=== PATIENT | female | born 1970 | race Caucasian/White ===

== ENCOUNTER → 2024-05-18 09:26 | Outpatient (BNVA) | payer MEDICAID, SELFPAY | PROVIDERS: PCP Family Medicine; Visit Provider Family Medicine | DX: E11.9 Type 2 diabetes mellitus without complications (principal); Z79.4 Long term (current) use of insulin; M32.9 Systemic lupus erythematosus, unspecified; Z86.39 Personal history of other endocrine, nutritional and metabolic disease | CPT/HCPCS: 80053; 80061; 82043; 83036; 85025; 85651; 86038; 86140; 86200; 86431 ==

== ENCOUNTER → 2024-07-13 08:33 | Outpatient (BNVA) | payer MEDICAID, SELFPAY | PROVIDERS: PCP Family Medicine; Referring Provider Family Medicine; Visit Provider Internal Medicine Rheumatology | DX: M25.50 Pain in unspecified joint (principal); Z79.899 Other long term (current) drug therapy; Z71.85 Encounter for immunization safety counseling; M32.14 Glomerular disease in systemic lupus erythematosus; R76.8 Other specified abnormal immunological findings in serum | CPT/HCPCS: 36415; 83520; 86160; 86162; 86200; 86235; 86255; 86376; 86431; 86480; 86704; 86803; 87340; 99204 ==

== ENCOUNTER → 2024-07-23 09:18 | Outpatient (BNVA) | payer MEDICAID, SELFPAY | PROVIDERS: PCP Family Medicine; Visit Provider Family Medicine | DX: E87.5 Hyperkalemia (principal) | CPT/HCPCS: 80048 ==

== ENCOUNTER 2024-08-12 13:57 | Outpatient (CLI) | payer MEDICAID, SELFPAY ==
[2024-08-12 14:44] LABS: Basophils % 0.3 %; Eosinophils % 0.1 %; Hematocrit 53.5 % (36-47); Lymphocytes # 1.3 10^3/uL (0.8-4.8); Lymphocytes % 12.5 %; Mean Corpuscular HGB Conc 34.4 g/dL (30-55); Mean Corpuscular Hemoglobin 32.5 pg (27-33); Mean Corpuscular Volume 94.4 fl (85-98); Mean Platelet Volume 8.8 fL (7.4-10.4); Monocytes # 0.7 10^3/uL (0.2-0.9); Monocytes % 6.2 %; Neutrophils # 8.41 10^3/uL (1.8-7.7); Neutrophils % 80.5 %; Nucleated Red Blood Cells % 0 %; Platelet Count 471 10^3/cmm (157-399); Red Blood Count 5.67 10^6/uL (3.85-5.65); Red Cell Distribution Width 12.4 % (12.1-15.1); White Blood Count 10.44 10^3/uL (3.29-11.43)
[2024-08-12 14:55] LABS: Erythrocyte Sedimentation Rate 27 mm/hr (0-15)
[2024-08-12 15:18] LABS: Alanine Aminotransferase 24 U/L (0-33); Albumin Level 4.1 g/dL (3.5-5.2); Alkaline Phosphatase 141 U/L (35-105); Aspartate Amino Transferase 25 U/L (0-32); Bilirubin Direct 0.14 mg/dL (0.00-0.30); C Reactive Protein 7.7 mg/L (0.0-4.9); Free T4 Free Thyroxine 1.15 ng/dL (0.82-1.77); Glomerular Filtration Rate 65.5 mL/min (90-130); Total Bilirubin 0.3 mg/dL (0.15-1.2); Total Protein 8.1 g/dL (6.6-8.7)
== END 2024-08-12 13:58 | disposition home or self-care (01) ==
LOC: LAB 13:59
PROVIDERS: PCP Family Medicine; Visit Provider Internal Medicine Rheumatology
DX: M32.14 Glomerular disease in systemic lupus erythematosus (principal); Z79.899 Other long term (current) drug therapy
CPT/HCPCS: 36415; 80076; 82565; 84439; 84443; 85025; 85651; 86140

== ENCOUNTER 2024-09-06 10:05 | Oncology outpatient (recurring) (ONCR) | payer MEDICAID, SELFPAY | END 2024-09-23 23:59 | disposition home or self-care (01) | PROVIDERS: PCP Family Medicine; Visit Provider Internal Medicine Medical Oncology | DX: C20 Malignant neoplasm of rectum (principal); D75.1 Secondary polycythemia; F17.219 Nicotine dependence, cigarettes, with unspecified nicotine-induced disorders | CPT/HCPCS: 99205 ==

== ENCOUNTER 2024-10-05 20:37 | Observation (INO) | payer MEDICAID, SELFPAY ==
--- OUTSIDE RECORDS SUMMARY | 2024-07-26 10:00 | XMS_ITS | Continuity of Care Document ---
Author Organization [facility] Address [address] [place] [address] Phone Care Team Providers Care Pari Mutuel Ticket Cashier Name Role Phone Huy Rome Unavailable Unavailabl e Allergies, Adverse Reactions, Alerts Substance Reaction Status Criticality No Known Allergies Active No Inform ation Medications Medication Instructions Dosage Effective Dates (start - stop) Status Comments spironolactone 25 mg tablet take 1 tablet by oral route every day 25 MG - Active pt must make appt for further r/f duloxetine 30 mg capsule,delayed release take 1 capsule by oral route every day 30 MG - Active pt must make appt for further r/f metformin 1,000 mg tablet take 1 tablet by oral route 2 times every day with morning and evening meals 1000 MG - Active pt must make appt for further r/f rosuvastatin 40 mg tablet take 1 tablet by oral route every day 40 MG - Active pt must make appt for further r/f insulin glargine (U-100) 100 unit/mL (3 mL) subcutaneous pen inject 30 units by subcutaneous route every day - Active increased dose aspirin 81 mg tablet,delayed release take 1 tablet by oral route every day 81 MG - Active famotidine 20 mg tablet take 1 tablet by oral route every day 20 MG - Active fluticasone propionate 50 mcg/actuation nasal spray,suspension inhale 1 spray by intranasal route every day in each nostril 50 MCG - Active FreeStyle Surjit 3 Sensor device Use as directed, change every 14 days. - Active Blood Glucose Test strips CHECK TWICE DAILY by Intradermal route Not Available - Active ketotifen 0.025 % (0.035 %) eye drops instill 1 drop by ophthalmic route 2 times every day into affected eye(s) 1.00 drop - Active prednisone 1 mg tablet take 3 tablet by oral route every day 3 MG - Active triamcinolone acetonide 0.1 % topical cream apply by topical route two times daily for 2-4 weeks at a time - Active Vitamin D2 1,250 mcg (50,000 unit) capsule take 1 capsule by mouth every 7 days - Active bumetanide 1 mg tablet take 1 tablet by oral route twice daily - Active Benlysta 200 mg/mL subcutaneous auto-injector inject 1 milliliter by subcutaneous route every week on the same day of each week in the abdomen or thigh; rotate injectionsites 200 MG - Active Repatha SureClick 140 mg/mL subcutaneous pen injector inject 1 milliliter by subcutaneous route every 2 weeks in the abdomen, thigh, or outer area of upper arm (rotate sites) 140 MG - Active mycophenolate mofetil 500 mg tablet take 1 tablet by oral route 2 times every day 500 MG - Active Mounjaro 7.5 mg/0.5 mL subcutaneous pen injector inject 0.5mL into the skin every 7 days - Active Farxiga 10 mg tablet take 1 tablet by oral route every day in the morning 10 MG - Active Procedures Procedure Date Preventive checkup, est,40-64 yrs BODY MASS INDEX DOCD DIAST BP < 80 MM HG SYST BP LT 130 MM HG Cytopath C V Auto Fluid Redo (Pap) Office/outpatient visit,new, mod 2023 BODY MASS INDEX DOCD DIAST BP < 80 MM HG Mar-15-2024 SYST BP LT 130 MM HG HEMOGLOBIN A1C LEVEL > 9.0% Glycosylated hemoglobin assay Automated hemogram (CBC) HIV-1 AG W/HIV-1 & HIV-2 AB (EIA, SINA, COLE) Antibody, hepatitis C Metabolic panel, comprehensive Advance Directives Directive Yes / No Effective Date File Name No Information Encounters Encounter Description Practice Location Reason(s) For Visit Diagnoses Date Provider Providers Copied on Encounter [facility], [address], [place], [id number] tel: [phone] Formerly [facility] No Information 5 Olinda Loydin. [address], [place], [id number] . tel: [phone] [facility], [address] [place], [place], [id number] tel: [phone] [facility] No Information 4 Gardner Caytlin. [address], [place], [address] . tel: [phone] Preventive checkup, est,40-64 yrs [facility], [address] [place], [id number] tel: [phone] [facility] Nursing Comments (chief complaint) Annual exam (chief complaint) Encounter for gynecological examination (general) (routine) without abnormal findingsBody mass index [BMI] 37.0-37.9, adultPap smear for cervical cancer screening 4 Olinda Caytlin. [address], [place], [id number] . tel: [phone] [facility], [address] [place], [place], [address] tel:[phone] [facility] Type 2 diabetes mellitus without complication, without long-term current use of insulin 4 Olinda Caytlin. [address], [place], [address] . tel: [phone] Office/outpat ient visit,[facility], [address] [place], [id number] tel:[phone] [facility] Nursing Comments (chief complaint) new pt (chief complaint) Body mass index [BMI] 39.0-39.9, adultLupusType 2 diabetes mellitus without complication, without long-term current use of insulinScreening for HIV (human immunodeficiency virus)Encounter for hepatitis C screening test for low risk patientEncounter to establish careScreen for colon cancerAbnormal mammogram of left breast 4 Olinda Son. [address], [place], [address] . tel: [phone] Family History Family Member Type Diagnosis Age At Onset Mother Problem (finding) High cholesterol Mother Problem (finding) Diabetes mellitus Brother Problem (finding) Obesity Mother Problem (finding) Stroke Brother Problem (finding) Diabetes mellitus Payers Payer name Insurance type Covered alliance party ID Authoriza tion(s) [facility] CI [id number] Social History Type Description Quantity Date Captured Comments Sex Female Smoking Status No Information Sexual Orientation Straight or heterosexual Gender Identity Female Plan Of Treatment Date Type Action Status Goal Lifestyle education regardin g diet completed Goal Tobacco cessation counseling completed Goal Lifestyle education regardin g diet completed Referral Referred To: Referral JOSUE Shepard, [id number] [phone] Ordered: Referrals: Endocrinology, Diabetes and Metabolism. Referral Evaluate and treat Appointment date/timeframe: 05/12/2024 ordered Referral Referred To: Referral JOSUE Shepard, [id number] [phone] Ordered: Referrals: Rheumatology. Referral Evaluate and treat Appointment date/timeframe: 1 Month ordered Referral Ordered: Referrals: Diagnostic Radiology. Referral Diagnostic Mammogram, unilateral (CAD) + Ultrasound As Needed ordered Referral Referred To: Referral JOSUE Shepard, [id number] [phone] Ordered: Referrals: Gastroenterology. Referral . Evaluate and treat Appointment date/timeframe: 07/24/2023 ordered Referral Ordered: Referrals: Diagnostic Radiology. Referral MD.Diagnostic Mammogram, unilateral (CAD) + Ultrasound As Needed ordered Referral Ordered: Diagnostic Mammogram, unilateral (CAD) + Ultrasound As Needed L ordered Referral Ordered: Referrals: Diagnostic Radiology. Referral MD.Diagnostic Mammogram, unilateral (CAD) + Ultrasound As Needed ordered Referral Ordered: Referrals: Diagnostic Radiology. Referral MD.Diagnostic Mammogram, unilateral (CAD) + Ultrasound As Needed ordered History Of Present Illness Encounter Date Complaint History Of Prese nt Illness Nursing Comments Pharm: verified Travel: no Covid: rcv'd Fasting: no. Tobacco use: cigarettes 6 per day ETOH use: n/a Substance use: n/a Last PAP: 2020 # of current sexual partners: n/a Contraception: n/a ObGYN: unsure Pregnancies: 3, 2 live Abortions: 0 Miscarriages: 1 LMP: 2021 Breast complaints: lump on left breast. getting mammogram. Mammo (50+): 11/2022 DEXA (65+): n/a Colon (45+): 2018. ADAM HODGE Annual exam Patient's menses is absent. Details: LMP 3yrs ago. Negative for: breast discharge, breast lump(s) and breast pain. Positive for: breast self exam.Postmenopausal. Menopausal symptoms negative for: vaginal dryness. Pertinent negatives include abnormal vaginal bleeding, vaginal discharge and vaginal itching. Patient does not take calcium. Patient reports taking Vitamin D. Patient does not take multivitamins. The patient does not drink alcohol. Additional information: last pap 2020 but pt reports abnormal, no records avail for review. hx of abnormal mammo in [place], had spot on L breast/ advised repeat u/s in 6mon 04/2023, ordered mammo/u/s and referrals working on scheduling appt. pt does not feel mass in L breast. smokes tobacco/ not interested in quitting. 3/4 paternal aunts had BC. denies fam hx of hand surgeon or colon cancer. not sexually active in 10yrs.. Nursing Comments Pharmacy: [facility] Travel: no Fasting: no Covid: recieved Flu: recievedReason for Visit: [facility]. [place] Tobacco use: cigarettes, 1/2 pack per day ETOH use: n/a Substance use: n/a ObGYN: n/a Pregnancies: 2 Abortions: 0 Miscarriages: 0 LMP: 2020 Contraception: n/a # of current sexual partners: n/a Last pap: 2020 Last PCP/specialists: Diamond Ojeda, Adult Medicine at [facility] [phone]. Ophthalmology Dr Alexander White, Replaced By [facility] for [facility] care [phone]. ARLET Peterson, Rheum at [facility] [phone]. PMH: T2D, Lupus PSH: rectal surgery 2017, 2002, pyloric stenosis repair 1970 Occupation: disabled Mammo (50+): 10/2022 Colon (45+): 2018LJ, [place] new pt PCPHx of pcp in [place]. Moved to [place] x2mon d/t son. Denies recent hospitalizations.DM type 2Pt on Metformin 1000mg 2x/d, farixga 10mg/d, mounjaro 7.5mg/wk, lantus 20u/d. Denies low BS. last a1c over 7. Pt on Cymbalta to help with neuropathy, denies depression s/s. Pt states gabapentin does not help/ does not wish to continue. Lupusout meds x1 wk, tried to get r/f from previous prescriber but since she was out of state they would not r/f. Pt states on bumex/ spironolactone for hx of gaining fluid/ had 30L removed 3yrs ago per pt. Denies hx of heart failure. PMHHx of colon surgery colectomy 2017, csection, pyloric stenosis repair. Denies other surgical hx. Denies hx of CA/CVA/HTN/kidney problems/ liver problems/ thyroid problems/ seizures/tremors/ cancer.Fam HxCompleted/ on chart.Social HxSmokes 0.5ppd, not interested in quitting. Denies etoh use. Denies hx or current substance use. pap 2020, was abnormal per pt, will schedule for papLMP 3yrs agomammo last yr, spot L breast but repeat in 6mon due 04/2023, pt open to L breast u/s. colon 2018, recommend annually, pt open to referral Functional Status Date Functional Assessmen t No Information Instructions Date Instruction Additional Brynnr keely Encouraged pt to com plete SBE monthly, educate pt how to complete SBE. Encouraged pt to take vit d supplement and eat calcium rich diet to promote bone health. All questions/ concerns addressed. Related to Encounter for gynecological examination (general) (routine) without abnormal findings Giving encouragement to exercise Related to Body mass index [BMI] 37.0-37.9, adult Lifestyle education regarding di et Related to Body mass index [BMI] 37.0-37.9, adult Continue medicines d aily. Discussed will bridge medicines until get in with rheumatology. Risks, benefits and side effects of treatment were discussed with the patient. Related to Lupus Advised to see denti st twice yearly and encouraged yearly eye exam. Related to Encounter to establish care Continue medicines d aily. Advised pt to limit carbs/ sweets /sodas and increase exercise to help lower blood sugar. If you have chest pain, SOB, syncope, blurry vision, PUGA, swelling in lower legs, go to ER. Eat diet low in fats/salts (<2g/day). Encouraged pt to eat lean meats, increase vegetable intake and drink plenty of water 6-8, 8oz glasses of water/day. Encouraged aerobic exercise 30min/day 5 days a week. Related to Type 2 diabetes mellitus without complication, without long-term current use of insulin Giving encouragement to exercise Related to Body mass index [BMI] 39.0-39.9, adult Lifestyle education regarding di et Related to Body mass index [BMI] 39.0-39.9, adult Assessments Type Assessment Date No Information Patient Care Teams Name Effective Dates (start - stop) Status Members No Information
--- OUTSIDE RECORDS SUMMARY | 2024-07-26 10:00 | XMS_ITS | Continuity of Care Document ---
Author Organization [employer] [facility] [employer] [facility] Address [address] [place] [address] Phone Care Team Providers Care Basket Bottom Machine Operator Name Role Phone Huy Rome Unavailable Unavailabl [...] route every day - Active increased dose prednisone 1 mg tablet take 3 tablet by oral route every day 3 MG - Active triamcinolone acetonide 0.1 % topical cream apply by topical route two times daily for 2-4 weeks at a time - Active Vitamin D2 1,250 mcg (50,000 unit) capsule take 1 capsule by mouth every 7 days - Active ketotifen 0.025 % (0.035 %) eye drops instill 1 drop by ophthalmic route 2 times every day into affected eye(s) 1.00 drop - Active Blood Glucose Test strips CHECK TWICE DAILY by Intradermal route Not Available - Active FreeStyle Surjit 3 Sensor device Use as directed, change every 14 days. - Active fluticasone propionate 50 mcg/actuation nasal spray,suspension inhale 1 spray by intranasal route every day in each nostril 50 MCG - Active famotidine 20 mg tablet take 1 tablet by oral route every day 20 MG - Active aspirin 81 mg tablet,delayed release take 1 tablet by oral route every day 81 MG - Active Farxiga 10 mg tablet take 1 tablet by oral route every day in the morning 10 MG - Active Mounjaro 7.5 mg/0.5 mL subcutaneous pen injector inject 0.5mL into the skin every 7 days - Active mycophenolate mofetil 500 mg tablet take 1 tablet by oral route 2 times every day 500 MG - Active Repatha SureClick 140 mg/mL subcutaneous pen injector inject 1 milliliter by subcutaneous route every 2 weeks in the abdomen, thigh, or outer area of upper arm (rotate sites) 140 MG - Active Benlysta 200 mg/mL subcutaneous auto-injector inject 1 milliliter by subcutaneous route every week on the same day of each week in the abdomen or thigh; rotate injectionsites 200 MG - Active bumetanide 1 mg tablet take 1 tablet by oral route twice daily - Active Procedures Procedure Date Preventive checkup, [...] Diagnoses Date Provider Providers Copied on Encounter [facility], [address], [id number] tel: [phone] [facility] No Information 5 Olinda Loydin. [address] [place], [place], [id number] . tel: [phone] [facility], [address] [place], [place], [address] tel: [phone] [facility] No Information 4 [place] Caytlin. [address] [place], [place], [id number] . tel: [phone] Preventive checkup, est,40-64 yrs [facility], [address], [address] tel: [phone] [facility] Nursing Comments (chief complaint) Annual exam (chief complaint) Encounter for gynecological examination (general) (routine) without abnormal findingsBody mass index [BMI] 37.0-37.9, adultPap smear for cervical cancer screening 4 Olinda Caytlin. [address] [place], [place], [address] . tel: [phone] [facility], [address] [place], [place], [address] tel:[phone] [facility] Type 2 diabetes mellitus without complication, without long-term current use of insulin 4 Olinda Caytlin. [address] [place], [place], [address] . tel: [phone] Office/outpat ient visit,[facility], [address] [place], [id number] tel:[phone] [facility] Nursing Comments (chief complaint) new pt (chief complaint) Body mass index [BMI] 39.0-39.9, adultLupusType 2 diabetes mellitus without complication, without long-term current use of insulinScreening for HIV (human immunodeficiency virus)Encounter for hepatitis C screening test for low risk patientEncounter to establish careScreen for colon cancerAbnormal mammogram of left breast 4 Olinda Son. [address] [place], [place], [address] . tel: [phone] Family History Family Member Type Diagnosis Age At Onset Brother Problem (finding) Diabetes mellitus Mother Problem (finding) Stroke Brother Problem (finding) Obesity Mother Problem (finding) Diabetes mellitus Mother Problem (finding) High cholesterol Payers Payer name Insurance type Covered green party ID Authoriza tion(s) [facility] CI [id number] Social History Type Description Quantity Date Captured Comments Sex Female Smoking Status No Information Sexual Orientation Straight or heterosexual Gender Identity Female Plan Of Treatment Date Type Action Status Goal Lifestyle education regardin g diet completed Goal Tobacco cessation counseling completed Goal Lifestyle education regardin g diet completed Referral Referred To: Referral JOSUE Shepard, [id number] [phone] Ordered: Referrals: Endocrinology, Diabetes and Metabolism. Referral Evaluate and treat Appointment date/timeframe: 05/12/2024 ordered Referral Referred To: Referral JOSUE Shepard, [id number] [phone] Ordered: Referrals: Rheumatology. Referral Evaluate and treat Appointment date/timeframe: 1 Month ordered Referral Ordered: Referrals: Diagnostic Radiology. Referral Diagnostic Mammogram, unilateral (CAD) + Ultrasound As Needed ordered Referral Referred To: Referral JOSUE Shepard, [id number] [phone] Ordered: Referrals: Gastroenterology. Referral MD. Evaluate and treat Appointment date/timeframe: 07/24/2023 ordered [...] Date Complaint History Of Prese nt Illness Annual exam Patient's menses is absent. Details: [...] aunts had BC. denies fam hx of bracelet and brooch maker or colon cancer. not sexually active in 10yrs.. Nursing Comments Pharm: verified Travel: no Covid: rcv'd Fasting: no. Tobacco use: cigarettes 6 per day ETOH use: n/a Substance use: n/a Last PAP: 2020 # of current sexual partners: n/a Contraception: n/a ObGYN: unsure Pregnancies: 3, 2 live Abortions: 0 Miscarriages: 1 LMP: 2021 Breast complaints: lump on left breast. getting mammogram. Mammo (50+): 11/2022 DEXA (65+): n/a Colon (45+): 2019. ADAM HODGE new pt PCPHx of pcp in [place]. Moved to [place] x2mon d/t son. Denies recent hospitalizations.DM type [...] heart failure. PMHHx of colon surgery colectomy 2018, csection, pyloric stenosis repair. Denies other surgical hx. Denies hx of [place]/CVA/HTN/kidney problems/ liver problems/ thyroid problems/ seizures/tremors/ cancer.Fam HxCompleted/ on chart.Social HxSmokes 0.5ppd, not interested in quitting. Denies etoh use. Denies hx or current substance use. pap 2020, was abnormal per pt, will schedule for papLMP 3yrs agomammo last yr, spot L breast but repeat in 6mon due 04/2023, pt open to L breast u/s. colon 2017, recommend annually, pt open to referral Nursing Comments Pharmacy: verif ied Travel: no Fasting: no Covid: recieved Flu: recievedReason for Visit: Establish care. [place], [place] Tobacco use: cigarettes, 1/2 pack per day ETOH use: n/a Substance use: n/a ObGYN: n/a Pregnancies: 2 Abortions: 0 Miscarriages: 0 LMP: 2020 Contraception: n/a # of current sexual partners: n/a Last pap: 2020 Last PCP/specialists: Diamond Ojeda, Adult Medicine at [facility] [phone]. Op[address] Alexander White, [facility] for Vision care [phone]. ARLET Peterson, Rheum at [facility] [phone]. PMH: T2D, Lupus PSH: rectal surgery 2017, 2002, pyloric stenosis repair 1970 Occupation: disabled Mammo (50+): 10/2022 Colon (45+): 2017LJ, ADAM Functional Status Date Functional Assessmen t No Information Instructions Date Instruction Costa Swainstefanie riggs Encouraged pt to com plete SBE monthly, educate pt how to complete SBE. Encouraged pt to take vit d supplement and eat calcium rich diet to promote bone health. All questions/ concerns addressed. Related to Encounter for gynecological examination (general) (routine) without abnormal findings Lifestyle education regarding di et Related to Body mass index [BMI] 37.0-37.9, adult Giving encouragement to exercise Related to Body mass index [BMI] 37.0-37.9, adult Advised to see denti st twice yearly [...] complication, without long-term current use of insulin Continue medicines d aily. Discussed will bridge medicines until get in with rheumatology. Risks, benefits and side effects of treatment were discussed with the patient. Related to Lupus Lifestyle education regarding di et Related to Body mass index [BMI] 39.0-39.9, adult Giving encouragement to exercise Related to Body mass index [BMI] 39.0-39.9, adult Assessments Type Assessment Date No Information Patient Care Teams Name Effective Dates (start - stop) Status Members No Information
--- OUTSIDE RECORDS SUMMARY | 2024-07-26 10:00 | XMS_ITS | Continuity of Care Document ---
Author Organization [facility] [facility] Address [address] [place] [address] Phone Care Team Providers Care Analytic Manager Name Role Phone Huy Rome Unavailable Unavailabl [...] Diagnoses Date Provider Providers Copied on Encounter [facility], [address], [place], [id number] tel: [phone] [facility] No Information 5 Olinda Loydin. [address], [place], [id number] . tel: [phone] [facility], [address] [place], [place], [id number] tel: [phone] [facility] No Information 4 Beals Caytlin. [address], [place], [id number] . tel: [phone] Preventive checkup, est,40-[address] [facility], [address], [id number] tel: [phone] [facility] Nursing Comments (chief complaint) Annual exam (chief complaint) Encounter for gynecological examination (general) (routine) without abnormal findingsBody mass index [BMI] 37.0-37.9, adultPap smear for cervical cancer screening 4 Olinda Caytlin. [address], [place], [id number] . tel: [phone] [facility], [address] [place], [place], [address] tel:[phone] [facility] Type 2 diabetes mellitus without complication, without long-term current use of insulin 4 Olinda Caytlin. [address], [place], [address] . tel: [phone] Office/outpat ient visit,[facility], [address] [place], [id number] tel:[phone] [facility] Nursing Comments (chief complaint) new pt (chief complaint) Body mass index [BMI] 39.0-39.9, adultLupusType 2 diabetes mellitus without complication, without long-term current use of insulinScreening for HIV (human immunodeficiency virus)Encounter for hepatitis C screening test for low risk patientEncounter to establish careScreen for colon cancerAbnormal mammogram of left breast 4 Olinda Son. [address], [place], [id number] . tel: [phone] Family History Family Member Type Diagnosis Age At Onset Mother Problem (finding) High cholesterol Mother Problem (finding) Diabetes mellitus Brother Problem (finding) Obesity Mother Problem (finding) Stroke Brother Problem (finding) Diabetes mellitus Payers Payer name Insurance type Covered alliance party ID Authoriza tion(s) [facility] CI [id number] Social History Type Description Quantity Date Captured Comments Sex Female Smoking Status No Information Sexual Orientation Straight or heterosexual Gender Identity Female Plan Of Treatment Date Type Action Status Goal Lifestyle education regardin g diet completed Goal Tobacco cessation counseling completed Goal Lifestyle education regardin g diet completed Referral Referred To: Referral JOSUE Shepard, [id number] [phone] Ordered: Referrals: Endocrinology, Diabetes and Metabolism. Referral Evaluate and treat Appointment date/timeframe: 05/12/2024 ordered Referral Referred To: Referral JOSUE Shepard, [id number] [phone] Ordered: Referrals: Rheumatology. Referral Evaluate and treat Appointment date/timeframe: 1 Month ordered Referral Ordered: Referrals: Diagnostic Radiology. Referral Diagnostic Mammogram, unilateral (CAD) + Ultrasound As Needed ordered Referral Referred To: Referral JOSUE Shepard, [id number] [phone] Ordered: Referrals: Gastroenterology. Referral . Evaluate and [...] aunts had BC. denies fam hx of welding machine operator arc or colon cancer. not sexually active in 10yrs.. Nursing Comments Pharmacy: [facility] Travel: no Fasting: no Covid: recieved Flu: recievedReason [facility] [place] Tobacco use: cigarettes, 1/2 pack per day ETOH use: n/a Substance use: n/a ObGYN: n/a Pregnancies: 2 Abortions: 0 Miscarriages: 0 LMP: 2020 Contraception: n/a # of current sexual partners: n/a Last pap: 2020 Last PCP/specialists: Diamond Ojeda, Adult Medicine at [facility] [phone]. Ophthalmology Dr Alexander White, [facility] care [phone]. ARLET Peterson, Rheum at [facility] [phone]. PMH: T2D, Lupus PSH: rectal surgery 2017, 2002, pyloric stenosis repair 1970 Occupation: disabled Mammo (50+): 10/2022 Colon (45+): 2018[place], [place] new pt PCPHx of pcp in [place]. Moved to [place] x2mon d/t son. Denies recent hospitalizations.DM type [...] Denies other surgical hx. Denies hx of NH/CVA/HTN/kidney problems/ liver problems/ thyroid problems/ seizures/tremors/ cancer.Fam [...]
[2024-10-05 20:38] VITALS: BP 111/63; PULSE 92; RESP 18; TEMP 36.2; O2SAT 94; BMI 37.5
--- NOTE | 2024-10-05 20:44 | ECG_ITS ---
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 Measurements Intervals [place] Rate: 90 P: 70 DC: 163 QRS: 259 QRSD: 88 T: 44 QT: 301 QTc: 368 Interpretive Statements SINUS RHYTHM Poor R wave progression Possible mild right ventricular conduction delay No previous ECG available for comparison Electronically Signed On 10-05-2024 21:27:34 CDT by Royce Kim M.D. [email or web address]
--- NOTE | 2024-10-05 20:45 | XRR_ITS ---
PROCEDURE INFORMATION: Exam: XR Chest Exam date and time: 10/05/2024 8:46 PM Age: 53 years old Clinical indication: Other: Weakness TECHNIQUE: Imaging protocol: Radiologic exam of the chest. Views: 1 view. COMPARISON: No relevant prior studies available. FINDINGS: Lungs: Vague 3 cm opacity overlying the right lung apex. No consolidation. Pleural spaces: Unremarkable. No pleural effusion. No pneumothorax. Heart/Mediastinum: Unremarkable. No cardiomegaly. Bones/joints: Unremarkable. XR/XR chest 1V portable [id number] IMPRESSION: 1. Vague 3 cm opacity overlying the right lung apex, which may be artifactual due to overlapping mediastinal structures and 1st rib, though a lung mass is not excluded. Recommend follow-up CT chest for further evaluation. 2. No focal consolidation.
--- NOTE | 2024-10-05 20:45 | W.ED.WEAKNES ---
HPI - Weakness General: Chief complaint: Weakness Stated complaint: WEAKNESS Time Seen by Provider: 10/05/24 20:41 History of Present Illness: 53-year-old woman with a history of polyarthralgias, lupus, diabetes, hyperlipidemia and obesity who presents emergency room by ambulance with generalized weakness. Says it started about 5 PM. She think she is having a lupus flare. However she has never had 1 before. Says she is on 3 mg of prednisone daily. No fever. No altered mental status. No focal motor deficits. No chest pain. No cough. No abdominal pain. Related Data Home Medications ?Medication ?Instructions ?Recorded ?Confirmed aspirin 81 mg tablet,delayed 81 mg PO DAILY 05/18/24 09/06/24 release calcium 500 mg (as tab PO 05/18/24 09/06/24 carbonate)-vitamin D3 15 mcg (600 unit) tablet cholecalciferol (vitamin D3) 1,250 1,250 mcg PO .every 7 days 05/18/24 09/06/24 mcg (50,000 unit) capsule ketotifen fumarate 0.025 % (0.035 1 drp ophthalmic (eye) BID 05/18/24 09/06/24 %) eye drops (Allergy Eye (ketotifen)) methotrexate sodium 2.5 mg tablet mg PO 09/06/24 09/06/24 Previous Rx's ?Medication ?Instructions ?Recorded dapagliflozin propanediol 10 mg 10 mg PO DAILY #30 tabs 05/18/[address] [facility] Blood Glucose Monitor #1 ea 05/21/24 Blood glucose test strips #100 ea 05/21/24 Lancets to be used with glucose #100 ea 05/21/24 testing Pen [place] to be used with Lantus #100 ea 05/21/24 and Moannel folic acid 1 mg tablet 1 mg PO DAILY #30 tabs 07/13/24 bumetanide 1 mg tablet 1 mg PO BID #180 tabs 07/16/24 duloxetine 30 mg capsule,delayed 30 mg PO DAILY #90 caps 07/16/24 release metformin 1,000 mg tablet 1,000 mg PO BID #180 tabs 07/16/24 spironolactone 25 mg tablet 25 mg PO DAILY #90 tabs 07/16/24 rosuvastatin 40 mg tablet 40 mg PO DAILY #30 tabs 08/19/24 insulin glargine 100 unit/mL (3 38 unit (0.38 mL) SUBCUT QAM #15 mL 08/20/24 mL) subcutaneous pen (Lantus Solostar U-100 Insulin) semaglutide 2 mg/dose (8 mg/3 mL) 2 mg (0.75 mL) SUBCUT .weekly 09/13/24 subcutaneous pen injector (Ozempic) Diabetes #3 mL famotidine 20 mg tablet 20 mg PO DAILY #30 tabs 09/15/24 fluticasone propionate 50 2 spray intranasal DAILY #16 grams 09/15/24 mcg/actuation nasal spray,suspension prednisone 1 mg tablet 3 mg (3 x 1 mg) PO DAILY #90 tabs 09/15/24 evolocumab 140 mg/mL subcutaneous 140 mg SUBCUT .every 2 weeks #2 mL 09/27/24 pen injector (Repatha SureClick) Allergies Allergy/AdvReac Type Severity Reaction Status Date / Time No Known Allergies Allergy Verified 09/06/24 10:11 Review of Systems Narrative: Constitutional symptoms: Negative except as documented in HPI. Skin symptoms: Negative except as documented in HPI. Eye symptoms: Negative except as documented in HPI. ENMT symptoms: Negative except as documented in HPI. Respiratory symptoms: Negative except as documented in HPI. Cardiovascular symptoms: Negative except as documented in HPI. Gastrointestinal symptoms: Negative except as documented in HPI. Genitourinary symptoms: Negative except as documented in HPI. Musculoskeletal symptoms: Negative except as documented in HPI. Neurologic symptoms: Negative except as documented in HPI. Psychiatric symptoms: Negative except as documented in HPI. Endocrine symptoms: Negative except as documented in HPI. PFSH ED PFSH: Medical History (Updated 10/06/24 @ 01:20 by Cherry Reyes MD) History of colorectal cancer Last seen by oncology in 2020. Last flex sig was in 2018. Positive antinuclear antibody Immunization counseling High risk medication use Polyarthralgia Allergic rhinitis GERD (gastroesophageal reflux disease) Nephrotic syndrome Type 2 diabetes mellitus, with long-term current use of insulin Encounter for colonoscopy following colon polyp removal History of hyperlipidemia History of diabetes mellitus History of lupus Surgical History History of colon resection adenocarcinoma History of Family History Mother Stroke Heart disease Hypertension Diabetes Social History Smoking and tobacco/nicotine status: current every day tobacco/nicotine user cigarettes Alcohol intake: never Substance/Drug Use: never Physical Exam Narrative: EXAM NARRATIVE: General: Alert, no acute distress. Skin: Warm, dry. Head: Normocephalic, atraumatic. Neck: Supple, trachea midline. Eye: Extraocular movements are intact. Ears, nose, mouth and throat: mucosa moist. Cardiovascular: Regular, Normal peripheral perfusion. Respiratory: Lungs are clear to auscultation, respirations are non-labored, breath sounds are equal, Symmetrical chest wall expansion. Gastrointestinal: Soft, Nontender, Non distended Musculoskeletal: Normal ROM, no deformity. Neurological: Alert and oriented, No focal neurological deficit observed. Psychiatric: Cooperative, appropriate mood & affect. Course Vital Signs: Vital signs: Vital Signs Temperature 97.1 F L 10/05/24 20:38 Pulse Rate 80 10/06/24 01:12 Respiratory Rate 18 10/06/24 01:12 Blood Pressure 103/62 10/06/24 01:12 Pulse Oximetry 96 10/06/24 01:12 Oxygen Delivery Me thod Nasal Cannula 10/06/24 01:12 Oxygen Flow Rate 2 10/06/24 01:12 MDM - Weakness Medical Decision Making Medical decision making: Differential diagnosis for patient presenting with generalized weakness including but not limited to and based on the above HPI, review of systems and physical exam: Sepsis. Dehydration. Renal failure. Electrolyte abnormalities. Anemia. Congestive heart failure. Hypotension. Coronary syndrome. Hepatitis. Cirrhosis. Infections such as pneumonia, urinary tract infection, Tick bourne illness, Cellulitis, Viral infections including influenza and Covid-19. Workup: labwork and lab/exam driven imaging ordered to evaluate, rule in and rule out above pathologies. Chest x-ray: 3 cm opacity overlying the right lung apex. CT was done to further evaluate. No other infiltrates or abnormalities. This was reviewed and interpreted by myself the emergency room physician. I also reviewed the radiology report. Lab Review: Laboratory results were reviewed and interpreted by myself the emergency room physician. Mild leukocytosis. No anemia. No renal failure. Potassium is 2.8. Sodium is 127. Fluids and potassium replacement being given. CT of the chest without contrast: This was ordered to further evaluate abnormal chest x-ray. The 3 cm opacity is not present but there is some pulmonary nodules. No obvious infiltrates. This was reviewed and interpreted by myself the emergency room physician. I also reviewed the radiology report. I reviewed the patient's medical record. 53-year-old woman with a history of polyarthralgias, lupus, diabetes, hyperlipidemia and obesity sodium was almost 140 just a couple of months ago. Reexamination: Patient's blood pressure remains soft. She is requiring 2 to 3 L nasal cannula. She has had no diarrhea. She says she was on a low-sodium diet. Her sodium is considerably lower than it was recently. Her lactate was over 5 and has come down to 3-1/2. She says her steroids have not changed in 2 to 3 years but I have some concern maybe she is having some adrenal insufficiency so I am giving hydrocortisone stress dose. I am going to go ahead and treat her empirically for sepsis. Broad-spectrum antibiotics. I am holding on further fluids at this time though Assessment and plan: Hyponatremia Hypoxemia Hypokalemia Lactic acidosis Possible sepsis ?IV hydrocortisone for possible adrenal insufficiency ?Continued hypoxemia. Lungs were clear for infection. I am going to order a CTA that can be done on her way to the floor. - 1 L normal saline bolus for now. Limiting fluids with her low sodium etc. Again I do not have a specific source. Lungs are clear. Urine is clear. -Broad-spectrum antibiotics were administered. Cefepime and vancomycin -Sepsis quality measures. -Lactic acid with a reflex was ordered. -Blood cultures were ordered. ?40 mEq IV and 40 mEq p.o. potassium. Empirically given 2 g of magnesium -I discussed the patient with the hospitalist on-call who is admitting the patient. - Discussed findings and plan with patient. Answered any questions. - All laboratory values were reviewed and interpreted personally by myself, the ER physician - All imaging was reviewed and interpreted personally by myself, the ER physician. - Evaluation and treatment of this problem were appropriate in the emergency setting Critical Care: -I spent a total of >35 minutes of critical care time managing the patient, independent of any other practitioner. -The time involved in the performance of separately reportable procedures was not counted towards critical care time. Lab Data 10/05/24 21:05 10/05/24 21:05 Radiology Impressions Chest X-Ray 10/05/24 20:45 IMPRESSION: 1. Vague 3 cm opacity overlying the right lung apex, which may be artifactual due to overlapping mediastinal structures and 1st rib, though a lung mass is not excluded. Recommend follow-up CT chest for further evaluation. 2. No focal consolidation. Chest CT 10/05/24 21:57 IMPRESSION: 1. A 9 mm solid nodule in the right upper lobe. For both low risk and high risk patients, consider CT Chest at 3 months, PET/CT, or biopsy. (Reference: Cullen) 2. A few additional scattered smaller nodules in the right lung. 3. No abnormality corresponding to the 3 cm opacity overlying the right lung apex on prior chest radiograph, which likely represented overlapping mediastinal fat and prominent right costochondral cartilage. REFERENCES: Cullen Cristina, et al. Guidelines for Management of Incidental Pulmonary Nodules Detected on CT Images: From the Fleischner Society 2017. Radiology. 2017;284(1):228-243. Laboratory Results WBC 10.38 10^3/uL (3.29-11.43) 10/05/24 21:05 RBC 4.79 10^6/uL (3.85-5.65) 10/05/24 21:05 Hgb 15.40 g/dL (11.27-16.99) 10/05/24 21:05 Hct 43.6 % (36-47) 10/05/24 21:05 MCV 91.0 fl (85-98) 10/05/24 21:05 MCH 32.2 pg (27-33) 10/05/24 21:05 MCHC 35.3 g/dL (30-55) 10/05/24 21:05 RDW 12.1 % (12.1-15.1) 10/05/24 21:05 Plt Count 355 10^3/cmm (157-399) 10/05/24 21:05 MPV 9.1 fL (7.4-10.4) 10/05/24 21:05 Neut % (Auto) 68.1 % 10/05/24 21:05 Lymph % (Auto) 23.7 % 10/05/24 21:05 [place] % (Auto) 6.2 % 10/05/24 21:05 Eos % (Auto) 1.4 % 10/05/24 21:05 Baso % (Auto) 0.4 % 10/05/24 21:05 Neut # (Auto) 7.07 10^3/uL (1.8-7.7) 10/05/24 21:05 Lymph # (Auto) 2.5 10^3/uL (0.8-4.8) 10/05/24 21:05 [place] # (Auto) 0.6 10^3/uL (0.2-0.9) 10/05/24 21:05 Eos # (Auto) 0.2 10^3/uL (0.0-0.8) 10/05/24 21:05 Baso # (Auto) 0.0 10^3/uL (0.0-0.1) 10/05/24 21:05 Nucleated RBC % (auto) 0 % 10/05/24 21:05 Nucleated RBCs # 0.0 /100WBC 10/05/24 21:05 ESR 33 mm/hr (0-15) H 10/05/24 21:05 Sodium 127 mmol/L (136-145) L 10/05/24 21:05 Potassium 2.8 mmol/L (3.5-5.1) L* 10/05/24 21:05 Chloride 83 mmol/L (98-107) L 10/05/24 21:05 Carbon Dioxide 24 mmol/L (22-29) 10/05/24 21:05 Anion Gap 22.8 (5-19) H 10/05/24 21:05 BUN 12 mg/dL (6-20) 10/05/24 21:05 Creatinine 0.7 mg/dL (0.5-0.9) 10/05/24 21:05 GFR Calculation 87.5 mL/min (90-130) L 10/05/24 21:05 Glucose 155 mg/dL (65-115) H 10/05/24 21:05 Calculated Osmolality 267 mOsm/kg (285-295) L 10/05/24 21:05 Lactic Acid 5.4 mmol/L (0.5-2.2) H* 10/05/24 21:05 Lactic Acid (Sepsis) 3.6 mmol/L (0.5-2.2) H 10/05/24 23:45 Calcium 9.6 mg/dL (8.5-10.5) 10/05/24 21:05 Total Bilirubin 0.2 mg/dL (0.15-1.2) 10/05/24 21:05 AST 18 U/L (0-32) 10/05/24 21:05 ALT 19 U/L (0-33) 10/05/24 21:05 Alkaline Phosphatase 118 U/L (35-105) H 10/05/24 21:05 C-Reactive Protein 9.2 mg/L (0.0-4.9) H 10/05/24 21:05 Total Protein 7.1 g/dL (6.6-8.7) 10/05/24 21:05 Albumin 4.0 g/dL (3.5-5.2) 10/05/24 21:05 Globulin 3.1 g/dL (1.3-4.6) 10/05/24 21:05 Urine Color Yellow (Yellow) 10/05/24 23:10 Urine Appearance Clear (CLEAR) 10/05/24 23:10 Urine pH 6.0 (5-7) 10/05/24 23:10 Ur Specific Jackson 1.005 (1.005-1.030) 10/05/24 23:10 Urine Protein 3+ (Negative) A 10/05/24 23:10 Urine Glucose (UA) Negative (Normal) 10/05/24 23:10 Urine Ketones Negative (Negative) 10/05/24 23:10 Urine Blood Negative (Negative) 10/05/24 23:10 Urine Nitrate Negative (Negative) 10/05/24 23:10 Urine Bilirubin Negative (Negative) 10/05/24 23:10 Urine Urobilinogen 0.2 mg/dL (Negative) 10/05/24 23:10 Ur Leukocyte Esterase Negative (Negative) 10/05/24 23:10 Urine RBC 0-2 /hpf (0-2) 10/05/24 23:10 Urine WBC 0-5 /hpf (0-5) 10/05/24 23:10 Ur Squamous Epith Cells 0-5 /hpf (0-5) 10/05/24 23:10 Amorphous Sediment Not Reportable 10/05/24 23:10 Urine Bacteria None seen /hpf (NONE) 10/05/24 23:10 Hyaline Casts 5.77 /lpf 08/12/25 23:10 Influenza A (PCR) Negative (Negative) 10/05/24 23:15 Influenza Type B (PCR) Negative (Negative) 10/05/24 23:15 RSV (PCR) Negative (Negative) 10/05/24 23:15 SARS-CoV-2 (PCR) Negative (Negative) 10/05/24 23:15 All radiology interpretation(s) finalized by discharge Discharge Plan Discharge Patient Disposition: Admitted As Inpatient Clinical Impression: Incidental pulmonary nodule, Hyponatremia, Hypokalemia Condition: Stable Discharge Diet: Usual diet Discharge Activity: Increase activity as tolerated Coding Level of Care Code 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
[2024-10-05 21:20] LABS: Hematocrit 43.6 % (36-47); Hemoglobin 15.40 g/dL (11.27-16.99); Mean Corpuscular HGB Conc 35.3 g/dL (30-55); Mean Corpuscular Hemoglobin 32.2 pg (27-33); Mean Corpuscular Volume 91.0 fl (85-98); Nucleated Red Blood Cells % 0 %; Platelet Count 355 10^3/cmm (157-399); Red Blood Count 4.79 10^6/uL (3.85-5.65); White Blood Count 10.38 10^3/uL (3.29-11.43)
[2024-10-05 21:45] LABS: Alanine Aminotransferase 19 U/L (0-33); Albumin Level 4.0 g/dL (3.5-5.2); Alkaline Phosphatase 118 U/L (35-105); Anion Gap 22.8 (5-19); Aspartate Amino Transferase 18 U/L (0-32); Calcium 9.6 mg/dL (8.5-10.5); Carbon Dioxide 24 mmol/L (22-29); Chloride 83 mmol/L (98-107); Creatinine Clr Calc Pharmacy 98.6798; Globulin 3.1 g/dL (1.3-4.6); Glucose 155 mg/dL (65-115); Sodium 127 mmol/L (136-145); Total Protein 7.1 g/dL (6.6-8.7)
[2024-10-05 21:52] LABS: Lactic Sepsis W/Reflex 5.4 mmol/L (0.5-2.2); Potassium 2.8 mmol/L (3.5-5.1)
--- NOTE | 2024-10-05 21:57 | CTR_ITS ---
PROCEDURE INFORMATION: Exam: CT Chest Without Contrast; Diagnostic Exam date and time: 10/05/2024 10:01 PM Age: 53 years old Clinical indication: Other: Abn cxr f/u; Additional info: Abnormal chest xray TECHNIQUE: Imaging protocol: Diagnostic computed tomography of the chest without contrast. Radiation optimization: All CT scans at this facility use at least one of these dose optimization techniques: automated exposure control; mA and/or kV adjustment per patient size (includes targeted exams where dose is matched to clinical indication); or iterative reconstruction. COMPARISON: CR (CHEST, ) 10/05/2024 8:46 PM RADIATION DOSE METRICS: Total DLP (mGy-cm): 655.41 FINDINGS: Trachea: Patent trachea and central airways. Lungs: Mild atelectasis in the inferior lingula. No lung consolidation. An 9 mm nodule in the anterior segment right upper lobe (series 5, image 21). A 5 mm ground-glass nodule in the superior segment right lower lobe (series 5, image 36). A few additional scattered 3 mm and smaller nodules in the right lower lobe. Pleural spaces: Unremarkable. No pneumothorax. No pleural effusion. Heart: Aortic valve calcifications are present. Lymph nodes: Mildly prominent 8 mm right lower paratracheal lymph node, nonspecific. No lymphadenopathy. Vasculature: Mild atherosclerotic calcification of the aortic arch. Coronary artery calcifications are absent. Bones/joints: Unremarkable. No acute fracture. Soft tissues: Unremarkable. CT/CT chest wo con [id number] IMPRESSION: 1. A 9 mm solid nodule in the right upper lobe. For both low risk and high risk patients, consider CT Chest at 3 months, PET/CT, or biopsy. (Reference: Cullen) 2. A few additional scattered smaller nodules in the right lung. 3. No abnormality corresponding to the 3 cm opacity overlying the right lung apex on prior chest radiograph, which likely represented overlapping mediastinal fat and prominent right costochondral cartilage. REFERENCES: Cullen Cristina, et al. Guidelines for Management of Incidental Pulmonary Nodules Detected on CT Images: From the Fleischner Society 2017. Radiology. 2017;284(1):228-243.
[2024-10-05 21:59] LABS: Blood Urea Nitrogen 12 mg/dL (6-20); Osmolality Calculated 267 mOsm/kg (285-295)
[2024-10-05] MEDS: magnesium sulfate premix 2 GM/50 ML PIGGYBACK IV (22:25)
[2024-10-05] MEDS: potassium chloride oral liq 20 mEq/15 mL UDC 40 MEQ PO (22:25)
[2024-10-05] MEDS: potassium chloride premix 100 ML 25 MEQ IV (22:32)
[2024-10-05 23:05] LABS: Reflex Lactate Order REFLEX LACTIC ORDERD
[2024-10-05 23:12] VITALS: BP 102/63; PULSE 83; RESP 16; O2SAT 94
[2024-10-05 23:38] LABS: Glucose Urine UA Negative (Normal); Nitrate Urine Negative (Negative); Specific Gravity, Urine 1.005 (1.005-1.030)
[2024-10-06] VITALS (10 sets, daily range): BP systolic 98–137; BP diastolic 58–87; PULSE 72–90; RESP 16–18; TEMP 36.2–36.7; O2SAT 93–96; BMI 37.7
[2024-10-06 00:07] LABS: Lactic Acid level (Lactate) 3.6 mmol/L (0.5-2.2)
[2024-10-06 00:14] LABS: Respiratory Syncytial Virus Ce NEGATIVE (Negative); SARS-CoV-2 PCR NEGATIVE (Negative)
--- NOTE | 2024-10-06 01:29 | CT_ITS ---
WS: [id number] CTA OF THE CHEST WITH PULMONARY EMBOLISM PROTOCOL TECHNIQUE: High-resolution contrast enhanced CTA of the chest with coronal and sagittal reformatted images with pulmonary embolism protocol. MIP images are also reviewed. CLINICAL INFORMATION: hypoxemia, tachycardia COMPARISON: CT 10/05/2024 DLP: 465.[address] scans at [facility] use at least one of these dose optimization techniques: automated exposure control; mA and/or kV adjustment per patient size (includes targeted exams where dose is matched to clinical indication); or iterative reconstruction. FINDINGS: Proximal main pulmonary arteries are normal. Normal segmental and subsegmental pulmonary arteries. No evidence of pulmonary embolus. 9 mm nodule RIGHT upper lobe unchanged since yesterday. No focal pneumonia or pleural fluid. Slight subsegmental atelectasis LEFT lower lobe. Nodular LEFT thyroid. Normal caliber thoracic aorta. Aortic calcification. Aberrant RIGHT subclavian artery. No mediastinal or hilar lymphadenopathy. Small LEFT adrenal adenoma. RIGHT adrenal gland is normal. Partially visualized but megaly. Thoracic kyphosis. Anterior hypertrophic changes thoracic spine. CT/CT angio chest PE protcl [id number] IMPRESSION: 1. No evidence of pulmonary embolus. 2. No other changes since 10/05/2024
[2024-10-06] MEDS: potassium chloride premix 100 ML 25 MEQ IV (02:03)
[2024-10-06] MEDS: cefepime 2,000 mg SDV 2000 MG IVP (02:03)
[2024-10-06] MEDS: hydrocortisone 100 mg/2 mL SDV IVP (02:49)
--- NOTE | 2024-10-06 05:03 | PM.HP ---
Providers/Chief Complaint Admitting Physician: Keon Payne MD Primary Care Provider: Danna Santiago DO Chief Complaint: WEAKNESS History of Present Illness Lidya Fallon is a 53 year old female with history of lupus, rheumatoid arthritis diabetes came in with complaint of weakness dizziness lightheadedness states she fell while walking the ambulance today. She received IV fluids in the emergency department states her dizziness resolved she feels stronger and nausea has resolved. She no longer feels lightheaded patient denies diarrhea she states the only pain she has is hand pain from rheumatoid arthritis. She is sleepy tired but no longer exhausted. States she took her prednisone 3 mg daily faithfully every day Review of Systems Narrative: Patient Nuys chest pain or heartburn no dysuria hematuria Respiratory positive for cough nonproductive chronically with lupus and also smoking cigarettes to a day trying to quit Neuro no history of seizures or strokes Hematologic denies blood clots in legs or lungs Medications/Allergies Home Medications ?Medication ?Instructions ?Recorded ?Confirmed ?Last Taken ?Type aspirin 81 mg tablet,delayed 81 mg PO DAILY 05/18/24 09/06/24 Unknown History release calcium 500 mg (as tab PO 05/18/24 09/06/24 Unknown History carbonate)-vitamin D3 15 mcg (600 unit) tablet cholecalciferol (vitamin D3) 1,250 1,250 mcg PO .every 7 days 05/18/24 09/06/24 Unknown History mcg (50,000 unit) capsule dapagliflozin propanediol 10 mg 10 mg PO DAILY #30 tabs 05/18/24 09/06/24 Unknown Rx tablet (Farxiga) ketotifen fumarate 0.025 % (0.035 1 drp ophthalmic (eye) BID 05/18/24 09/06/24 Unknown History %) eye drops (Allergy Eye (ketotifen)) Blood Glucose Monitor #1 ea 05/21/24 09/06/24 Unknown Rx Blood glucose test strips #100 ea 05/21/24 09/06/24 Unknown Rx Lancets to be used with glucose #100 ea 05/21/24 09/06/24 Unknown Rx testing Pen [place] to be used with Lantus #100 ea 05/21/24 09/06/24 Unknown Rx and Mounjaro folic acid 1 mg tablet 1 mg PO DAILY #30 tabs 07/13/24 09/06/24 Unknown Rx bumetanide 1 mg tablet 1 mg PO BID #180 tabs 07/16/24 09/06/24 Unknown Rx duloxetine 30 mg capsule,delayed 30 mg PO DAILY #90 caps 07/16/24 09/06/24 Unknown Rx release metformin 1,000 mg tablet 1,000 mg PO BID #180 tabs 07/16/24 09/06/24 Unknown Rx spironolactone 25 mg tablet 25 mg PO DAILY #90 tabs 07/16/24 09/06/24 Unknown Rx rosuvastatin 40 mg tablet 40 mg PO DAILY #30 tabs 08/19/24 09/06/24 Unknown Rx insulin glargine 100 unit/mL (3 38 unit (0.38 mL) SUBCUT QAM #15 mL 08/20/24 09/06/24 Unknown Rx mL) subcutaneous pen (Lantus Solostar U-100 Insulin) methotrexate sodium 2.5 mg tablet mg PO 09/06/24 09/06/24 Unknown History semaglutide 2 mg/dose (8 mg/3 mL) 2 mg (0.75 mL) SUBCUT .weekly 09/13/24 Unknown Rx subcutaneous pen injector (Ozempic) Diabetes #3 mL famotidine 20 mg tablet 20 mg PO DAILY #30 tabs 09/15/24 Unknown Rx fluticasone propionate 50 2 spray intranasal DAILY #16 grams 09/15/24 Unknown Rx mcg/actuation nasal spray,suspension prednisone 1 mg tablet 3 mg (3 x 1 mg) PO DAILY #90 tabs 09/15/24 Unknown Rx evolocumab 140 mg/mL subcutaneous 140 mg SUBCUT .every 2 weeks #2 mL 09/27/24 Unknown Rx pen injector (Repatha SureJamalick) Allergies Allergy/AdvReac Type Severity Reaction Status Date / Time No Known Allergies Allergy Verified 09/06/24 10:11 PFSH Acute PFSH: Medical History (Updated 10/06/24 @ 05:06 by Keon Payne MD) History of colorectal cancer Last seen by oncology in 2019. Last flex sig was in 2018. Positive antinuclear antibody Immunization counseling High risk medication use Polyarthralgia Allergic rhinitis GERD (gastroesophageal reflux disease) Nephrotic syndrome Type 2 diabetes mellitus, with long-term current use of insulin Encounter for colonoscopy following colon polyp removal History of hyperlipidemia History of diabetes mellitus History of lupus Surgical History History of colon resection adenocarcinoma History of Family History Mother Stroke Heart disease Hypertension Diabetes Social History (Updated 10/06/24 @ 05:05 by Keon Payne MD) Smoking and tobacco/nicotine status: current every day tobacco/nicotine user cigarettes Alcohol intake: never Substance/Drug Use: never Additional social history: Wants full CODE STATUS as discussed with Keon Payne MD on 10/06/2024 Vitals/I&O/Wt Last Vital Signs Temp 97.1 F L 10/06/24 04:00 Pulse 87 10/06/24 04:00 Resp 16 10/06/24 04:00 BP 102/67 10/06/24 04:00 Pulse Ox 95 10/06/24 04:00 O2 Del Method Nasal Cannula 10/06/24 04:00 O2 Flow Rate 2 10/06/24 04:00 10/05/24 10/05/24 10/06/24 14:59 22:59 06:59 Intake Total 1670 / 1670 Balance 1670 / 1670 Weight last 48 hrs Weight 93.576 kg Weight 92.986 kg Physical Exam Narrative: General well-developed well-nourished female with central obesity CV regular rate and rhythm Lungs clear to auscultation bilaterally Abdomen positive bowel tones soft nontender Calves trace ankle edema Face she has erythematous cheeks bilaterally Data 10/05/24 21:05 10/05/24 21:05 Micro: Microbiology 10/05/24 21:44 Blood Culture - Preliminary Blood SPECIMEN COLLECTED 10/05/24 21:05 Blood Culture - Preliminary Blood SPECIMEN COLLECTED A&P Assessment and plan 1. Dizziness, nonspecific: Patient states is resolved. Will have PT and OT evaluation 2. Hypokalemia: Replaced we will check BMP this morning 3. Hyponatremia: Replaced and recheck BMP this morning 4. Lupus (systemic lupus erythematosus): Stable but with macular rash over the face PDMP PDMP Reviewed: Not Reviewed Attestations Medical Necessity Statement*: Patient is admitted to hospital expected to span 1 midnight Coding Level of Care Code 41852 Diagnoses Dizziness, nonspecific R42 Hypokalemia E87.6 Hyponatremia E87.1 Lupus (systemic lupus erythematosus) M32.9 Time Spent (min) 55
[2024-10-06] MEDS: sodium chlor 0.9% + KCl 20 mEq 20 MEQ/1,000 ML BAG 125 MEQ IV (05:30)
[2024-10-06] MEDS: insulin glargine 100 units/1 mL 38 UNIT SUBCUT (05:30)
[2024-10-06] MEDS: iohexol 350 mg/mL 500 mL Btl (per mL) IV (08:58)
--- NOTE | 2024-10-06 10:33 | CT_ITS ---
WS: [id number] CT HEAD TECHNIQUE: Noncontrast CT of the head obtained from the skullbase to the vertex. CLINICAL INFORMATION: dizziness COMPARISON: None. DLP: 1223.[address] scans at [facility] use at least one of these dose optimization techniques: automated exposure control; mA and/or kV adjustment per patient size (includes targeted exams where dose is matched to clinical indication); or iterative reconstruction. FINDINGS: Small amount of residual contrast from PE study earlier today No evidence of intracranial hemorrhage or mass effect. Ventricular system and basal cisterns are patent. Mild frontal parenchymal volume loss. No extra-axial fluid collections. No evidence of mass or mass effect. Normal waldrop-white differentiation. Paranasal sinuses and mastoid air cells are well aerated. .Normal visualized soft tissues. CT/CT head wo con* [id number] IMPRESSION: 1. No evidence of intracranial hemorrhage or mass effect. 2. Mild frontal parenchymal volume loss. 3. Vascular calcification. 4. No acute intracranial findings.
[2024-10-06 11:46] LABS: Estmated Average Glucose 194; Hemoglobin A1C 8.4 % (4.0-6.0); Iron 76 ug/dL (37-145)
--- NOTE | 2024-10-06 11:46 | PC.SOCIAL ---
Home O2 eval done and patient didnt qualify for oxygen at this time.
[2024-10-06 12:01] LABS: Vitamin B12 711 pg/mL (232-1245)
--- NOTE | 2024-10-06 12:05 | ECG_ITS ---
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
[2024-10-06 12:38] LABS: Total Iron Binding Capacity 299 mcg/dl; Unsaturated Iron Binding 223 ug/dL (112-347)
[2024-10-06] MEDS: sodium chlor 0.9% + KCl 20 mEq 20 MEQ/1,000 ML BAG 100 MEQ IV (14:51)
--- NOTE | 2024-10-06 15:09 | PM.DCS ---
Discharge Providers Date of Admission: 10/06/24 05:07 Date of Discharge: October 06, 2024 Attending Provider at Admission: Keon Payne MD Attending Provider at Discharge: Garret Turner MD Primary Care Provider: Danna Santiago DO Diagnoses at Discharge Discharge Diagnosis 1. Dizziness, nonspecific: 2. Hypokalemia: 3. Hyponatremia: 4. Other systemic lupus erythematosus with glomerular disease: Reason for Visit Reason for Visit: WEAKNESS Brief History: Per HPI Lidya Fallon is a 53 year old female with history of lupus, rheumatoid arthritis diabetes came in with complaint of weakness dizziness lightheadedness states she fell while walking the ambulance today. She received IV fluids in the emergency department states her dizziness resolved she feels stronger and nausea has resolved. She no longer feels lightheaded patient denies diarrhea she states the only pain she has is hand pain from rheumatoid arthritis. She is sleepy tired but no longer exhausted. States she took her prednisone 3 mg daily faithfully every day Hospital Course Hospital Course Patient was admitted to the hospital further evaluation and management. During hospitalization she did not have any further episodes. CT head, CTA chest were done to rule out stroke, PE. Orthostatics remain negative. Blood sugars remained stable. A1c was found to be 8.3. She was found to be severely hypokalemic for which potassium was repleted. Home oxygen evaluation was done. She has been discharged back home in hemodynamically stable condition with advised to take Bumex only once daily as needed for weight gain of 5 pounds. She is to take potassium 10 mg twice daily for next 10 days. After that she is to take potassium only once a day when she is taking Bumex. She is to follow-up with her primary care provider within next 2 weeks for repeat BMP. Physical Exam Narrative: General well-developed well-nourished female with central obesity CV regular rate and rhythm Lungs clear to auscultation bilaterally Abdomen positive bowel tones soft nontender Calves trace ankle edema Face she has erythematous cheeks bilaterally Discharge Data Studies Completed and Pending Completed Studies During Hospitalization Category Date Time Status CT angio chest PE protcl [id number] Stat Cat Scan 10/06/24 01:[address] chest wo con [id number] Stat Cat Scan 10/05/24 21:[address] head wo con* [id number] Routine Cat Scan 10/06/24 10:33 Completed XR chest 1V portable [id number] Stat Exams 10/05/24 20:45 Completed Pending at discharge Category Date Time Status BMP [Basic Metabolic Panel] Timed Lab 10/06/24 14:41 Received Blood Culture Stat Lab 10/05/24 21:44 Results Folate Level AM LABS Lab 10/07/24 04:00 Ordered Lipid Profile w/VLDL Routine Lab 10/07/24 04:00 Ordered MAG [Magnesium] AM LABS Lab 10/07/24 04:00 Ordered MAG [Magnesium] AM LABS Lab 10/08/24 04:00 Ordered MAG [Magnesium] AM LABS Lab 10/09/24 04:00 Ordered Radiology Impressions Chest X-Ray 10/05/24 20:45 IMPRESSION: 1. Vague 3 cm opacity overlying the right lung apex, which may be artifactual due to overlapping mediastinal structures and 1st rib, though a lung mass is not excluded. Recommend follow-up CT chest for further evaluation. 2. No focal consolidation. Chest CT 10/05/24 21:57 IMPRESSION: 1. A 9 mm solid nodule in the right upper lobe. For both low risk and high risk patients, consider CT Chest at 3 months, PET/CT, or biopsy. (Reference: Cullen) 2. A few additional scattered smaller nodules in the right lung. 3. No abnormality corresponding to the 3 cm opacity overlying the right lung apex on prior chest radiograph, which likely represented overlapping mediastinal fat and prominent right costochondral cartilage. REFERENCES: Cullen H, et al. Guidelines for Management of Incidental Pulmonary Nodules Detected on CT Images: From the Fleischner Society 2017. Radiology. 2017;284(1):228-243. Chest CTA 10/06/24 01:29 IMPRESSION: 1. No evidence of pulmonary embolus. 2. No other changes since 10/05/[address] 10/06/24 10:33 IMPRESSION: 1. No evidence of intracranial hemorrhage or mass effect. 2. Mild frontal parenchymal volume loss. 3. Vascular calcification. 4. No acute intracranial findings. Laboratory Results WBC 10.38 10^3/uL (3.29-11.43) 10/05/24 21:05 RBC 4.79 10^6/uL (3.85-5.65) 10/05/24 21:05 Hgb 15.40 g/dL (11.27-16.99) 10/05/24 21:05 Hct 43.6 % (36-47) 10/05/24 21:05 MCV 91.0 fl (85-98) 10/05/24 21:05 MCH 32.2 pg (27-33) 10/05/24 21:05 MCHC 35.3 g/dL (30-55) 10/05/24 21:05 RDW 12.1 % (12.1-15.1) 10/05/24 21:05 Plt Count 355 10^3/cmm (157-399) 10/05/24 21:05 MPV 9.1 fL (7.4-10.4) 10/05/24 21:05 Neut % (Auto) 68.1 % 10/05/24 21:05 Lymph % (Auto) 23.7 % 10/05/24 21:05 [place] % (Auto) 6.2 % 10/05/24 21:05 Eos % (Auto) 1.4 % 10/05/24 21:05 Baso % (Auto) 0.4 % 10/05/24 21:05 Neut # (Auto) 7.07 10^3/uL (1.8-7.7) 10/05/24 21:05 Lymph # (Auto) 2.5 10^3/uL (0.8-4.8) 10/05/24 21:05 [place] # (Auto) 0.6 10^3/uL (0.2-0.9) 10/05/24 21:05 Eos # (Auto) 0.2 10^3/uL (0.0-0.8) 10/05/24 21:05 Baso # (Auto) 0.0 10^3/uL (0.0-0.1) 10/05/24 21:05 Nucleated RBC % (auto) 0 % 10/05/24 21:05 Nucleated RBCs # 0.0 /100WBC 10/05/24 21:05 ESR 33 mm/hr (0-15) H 10/05/24 21:05 Sodium Cancelled 10/06/24 05:32 Potassium Cancelled 10/06/24 05:32 Chloride Cancelled 10/06/24 05:32 Carbon Dioxide Cancelled 10/06/24 05:32 Anion Gap Cancelled 10/06/24 05:32 BUN Cancelled 10/06/24 05:32 Creatinine Cancelled 10/06/24 05:32 GFR Calculation Cancelled 10/06/24 05:32 Glucose Cancelled 10/06/24 05:32 POC Glucose 294 mg/dL (70-110) H 10/06/24 11:03 Estimat Average Glucose 194 10/06/24 11:08 Hemoglobin A1c 8.4 % (4.0-6.0) H 10/06/24 11:08 Calculated Osmolality Cancelled 10/06/24 05:32 Lactic Acid 5.4 mmol/L (0.5-2.2) H* 10/05/24 21:05 Lactic Acid (Sepsis) 3.6 mmol/L (0.5-2.2) H 10/05/24 23:45 Calcium Cancelled 10/06/24 05:32 Iron 76 ug/dL (37-145) 10/06/24 11:08 TIBC 299 mcg/dl 10/06/24 11:08 % Saturation 25.4 % (20-50) 10/06/24 11:08 Unsat Iron Binding 223 ug/dL (112-347) 10/06/24 11:08 Total Bilirubin 0.2 mg/dL (0.15-1.2) 10/05/24 21:05 AST 18 U/L (0-32) 10/05/24 21:05 ALT 19 U/L (0-33) 10/05/24 21:05 Alkaline Phosphatase 118 U/L (35-105) H 10/05/24 21:05 C-Reactive Protein 9.2 mg/L (0.0-4.9) H 10/05/24 21:05 Total Protein 7.1 g/dL (6.6-8.7) 10/05/24 21:05 Albumin 4.0 g/dL (3.5-5.2) 10/05/24 21:05 Globulin 3.1 g/dL (1.3-4.6) 10/05/24 21:05 Vitamin B12 711 pg/mL (232-1245) 10/06/24 11:08 Urine Color Yellow (Yellow) 10/05/24 23:10 Urine Appearance Clear (CLEAR) 10/05/24 23:10 Urine pH 6.0 (5-7) 10/05/24 23:10 Ur Specific Silas 1.005 (1.005-1.030) 10/05/24 23:10 Urine Protein 3+ (Negative) A 10/05/24 23:10 Urine Glucose (UA) Negative (Normal) 10/05/24 23:10 Urine Ketones Negative (Negative) 10/05/24 23:10 Urine Blood Negative (Negative) 10/05/24 23:10 Urine Nitrate Negative (Negative) 10/05/24 23:10 Urine Bilirubin Negative (Negative) 10/05/24 23:10 Urine Urobilinogen 0.2 mg/dL (Negative) 10/05/24 23:10 Ur Leukocyte Esterase Negative (Negative) 10/05/24 23:10 Urine RBC 0-2 /hpf (0-2) 10/05/24 23:10 Urine WBC 0-5 /hpf (0-5) 10/05/24 23:10 Ur Squamous Epith Cells 0-5 /hpf (0-5) 10/05/24 23:10 Amorphous Sediment Not Reportable 10/05/24 23:10 Urine Bacteria None seen /hpf (NONE) 10/05/24 23:10 Hyaline Casts 5.77 /lpf 10/05/24 23:10 Influenza A (PCR) Negative (Negative) 10/05/24 23:15 Influenza Type B (PCR) Negative (Negative) 10/05/24 23:15 RSV (PCR) Negative (Negative) 10/05/24 23:15 SARS-CoV-2 (PCR) Negative (Negative) 10/05/24 23:15 Vitals Last Vital Signs Temp 98.0 F 10/06/24 11:38 Pulse 72 10/06/24 11:38 Resp 16 10/06/24 11:38 BP 137/87 10/06/24 11:38 Pulse Ox 93 10/06/24 11:38 O2 Del Method Room Air 10/06/24 11:38 O2 Flow Rate 2 10/06/24 08:00 Discharge Plan Discharge Patient Disposition: Home Condition: Stable Prescriptions: New potassium chloride 10 mEq capsule, extended release 10 meq PO BID Qty: 20 0RF Continued aspirin 81 mg tablet,delayed release (DR/EC) 81 mg PO DAILY calcium carbonate-vitamin D3 500 mg-15 mcg (600 unit) tablet 1 tab PO BID ketotifen fumarate [Allergy Eye (ketotifen)] 0.025 % (0.035 %) drops 1 drp ophthalmic (eye) BID Rx Instructions: administer at least 8 hours apart cholecalciferol (vitamin D3) 1,250 mcg (50,000 unit) capsule 1,250 mcg PO .every 7 days Rx Instructions: Saturdays dapagliflozin propanediol [Farxiga] 10 mg tablet 10 mg PO DAILY Qty: 30 1RF folic acid 1 mg tablet 1 mg PO DAILY Qty: 30 4RF insulin glargine [Lantus Solostar U-100 Insulin] 100 unit/mL (3 mL) insulin pen 38 unit SUBCUT QAM Qty: 15 1RF (DME) Pen [place] to be used with Lantus and Mounjaro See Rx Instructions .Route .MEDSUPPLY Qty: 100 11RF Rx Instructions: As directed (DME) Blood Glucose Monitor See Rx Instructions .Route .MEDSUPPLY Qty: 1 0RF Rx Instructions: As directed (DME) Blood glucose test strips See Rx Instructions .Route .MEDSUPPLY Qty: 100 11RF Rx Instructions: As directed (DME) Lancets to be used with glucose testing See Rx Instructions .Route .MEDSUPPLY Qty: 100 11RF Rx Instructions: As directed metformin 1,000 mg tablet 1,000 mg PO BID Qty: 180 1RF duloxetine 30 mg capsule,delayed release(DR/EC) 30 mg PO DAILY Qty: 90 1RF spironolactone 25 mg tablet 25 mg PO DAILY Qty: 90 1RF rosuvastatin 40 mg tablet 40 mg PO DAILY Qty: 30 2RF famotidine 20 mg tablet 20 mg PO DAILY Qty: 30 1RF prednisone 1 mg tablet 3 mg PO DAILY Qty: 90 1RF Repatha SureClick 140 mg/mL pen injector 140 mg SUBCUT .every 2 weeks Qty: 2 1RF Rx Instructions: and fluticasone propionate 50 mcg/actuation spray,suspension 2 spray intranasal DAILY PRN (Reason: allergies) Rx Instructions: administer into each nostril Ozempic 2 mg/dose (8 mg/3 mL) pen injector 2 mg SUBCUT Q7D Rx Instructions: Saturdays Changed bumetanide 1 mg tablet 1 mg PO DAILY PRN (Reason: weight gain of 5 lbs) Qty: 180 1RF Referrals: Danna Santiago DO [Primary Care Provider, Family Practice] - 2 weeks Discharge Diet: Usual diet Discharge Activity: Increase activity as tolerated Patient Instructions: Opioid Safety, Pain Management, Patient Portal & Marcelina Instructions Activity Restrictions/Additional Instructions: A pulmonary nodule was seen on imaging. This will need follow up imaging with your primary provider. Please schedule an appointment concerning this. You will need a repeat CT in 3 months. Repeat BMP with primary care provider within next 2 weeks. Take Bumex only if your body weight increases by 5 pounds. Do not take Bumex daily. For now take potassium 10 mEq twice daily for 10 days. After that take potassium only on the day you are taking Bumex. Discharge Attestations Time Spent in Discharge Care*: greater than 30 min Specific Discharge Activities: educating patient, educating and/or supporting family/caregiver, discussing with pcp/other providers, discussing with bilingual patient support caseworker/social workers/dc planners, documenting/other paperwork and evaluating patient/reviewing data Status at Discharge: Cognitive status at discharge: cognitively intact, Behavioral status at discharge: cooperative, Functional status at discharge: independent ambulation, Overall status at discharge: patient is back to baseline Quality Metrics Clinical Quality Measures [ No reported AMI, CVA or VTE this stay] Coding Level of Care Code 39270 Total time (in minutes) for Discharge: 65 Diagnoses Dizziness, nonspecific R42 Hypokalemia E87.6 Hyponatremia E87.1 Other systemic lupus erythematosus with glomerular disease M32.14 Systemic lupus erythematosus type: other Systemic lupus erythematosus organ involvement: glomerular disease
[2024-10-06 15:14] LABS: Anion Gap 14.1 (5-19); Blood Urea Nitrogen 13 mg/dL (6-20); Calcium 9.1 mg/dL (8.5-10.5); Carbon Dioxide 25 mmol/L (22-29); Chloride 101 mmol/L (98-107); Creatinine Clr Calc Pharmacy 68.7032; Glucose 269 mg/dL (65-115); Osmolality Calculated 290 mOsm/kg (285-295); Potassium 5.1 mmol/L (3.5-5.1); Sodium 135 mmol/L (136-145)
--- OUTSIDE RECORDS SUMMARY | 2024-10-06 18:28 | XMS_ITS | Encounter Summary ---
Author Organization [email or web address], [facility] Address [address] [facility] [address] [place] [address] Phone Care Team Providers Care Caustic Strength Inspector Name Role Phone Danna Santiago DO Primary Care Provider [phone] Encounter Details Date Type Department Care Team (Late st Contact Info) Description 05/28/2024 Orders Only [email or web address] [address] [facility] [address] [place] [address] Nephrotic syndrome with morphologic changes, not otherwise specified; Proteinuria, not otherwise specified Social History Tobacco Use Types Packs/Day Years Used Date Smoking Tobacco: Never Assessed Comments Unknown Sex and Gender Information Value Date Recorded Sex Assigned at Not on file Legal Sex Female 10:41 AM EDT Gender Identity Not on file Sexual Orientation Not on file documented as of this encounter Plan of Treatment Upcoming Encounters Date Type Department Care Team (Late st Contact Info) Description 2024 10:40 AM CDT Office Visit [facility], [facility] [address] [place] [address] Chata Torres MD [address] [address] [place] [address] documented as of this encounter Visit Diagnoses Diagnosis Nephrotic syndrome with morphologic changes, not otherwise specified Proteinuria, not otherwise specified documented in this encounter Care Teams Caustic Strength Inspector Relationship Specialty Start Date End Date Danna Santiago DO [address] [facility] [address] [place] [address] PCP - General Family Medicine 05/27/24 documented as of this encounter
--- OUTSIDE RECORDS SUMMARY | 2024-10-06 18:28 | XMS_ITS | Clinical Summary ---
Author Organization [facility] Facility Address [address] [place] [address] Care Team Providers Care Dairy Farm Worker Name Role Phone Danna Santiago Primary Care Provider [phone] Social History Tobacco Use Types Packs/Day Years Used Date Smoking Tobacco: Never Assessed Comments Unknown Sex and Gender Information Value Date Recorded Sex Assigned at Not on file Legal Sex Female 10:41 AM EDT Gender Identity Not on file Sexual Orientation Not on file Plan of Treatment Upcoming Encounters Date Type Department Care Team (Late st Contact Info) Description 2024 10:40 AM CDT Office Visit [facility] [address] [place] [address] Chata Torres MD [address] [facility] [address] [place] [address] Health Maintenance Due Date Last Done Comments Breast Cancer Screening 1970 Hepatitis B Vaccine (1 of 3 - 19+ 3-dose series) 12/06 Pneumococcal Vaccine: 50+ Years (1 of 2 - PCV) 990 Colorectal Cancer Screening: Annual FOBT 12/07/2019 Colorectal Cancer Screening: Colonoscopy 12/07/2019 Colorectal Cancer Screening: Sigmoidoscopy 12/07/2019 Influenza Vaccine (#1) 2024 Insurance Medicaid [place] ([id number]) Care Teams Dairy Farm Worker Relationship Specialty Start Date End Date Danna Santiago DO [address] [facility] [address] [place] [address] PCP - General Family Medicine 05/27/24
--- OUTSIDE RECORDS SUMMARY | 2024-10-06 18:59 | XMS_ITS | Clinical Summary ---
Author Organization [facility] Facility Address [address] [place] [address] Care Team Providers Care Physical Testing Supervisor Name Role Phone Danna Santiago Primary Care Provider [phone] Social History Tobacco Use Types Packs/Day Years [...] Description 2024 10:40 AM CDT Office Visit [facility] [address] [place] [address] Chata Torres MD [address] [facility] [address] [place] [address] Health Maintenance Due Date Last Done Comments Breast Cancer Screening 1970 Hepatitis B Vaccine (1 of 3 - 19+ 3-dose series) 12/06 Pneumococcal Vaccine: 50+ Years (1 of 2 - PCV) 990 Colorectal Cancer Screening: Annual FOBT 12/07/2019 Colorectal Cancer Screening: Colonoscopy 12/07/2019 Colorectal Cancer Screening: Sigmoidoscopy 12/07/2019 Influenza Vaccine (#1) 2024 Insurance Medicaid [place] ([id number]) Care Teams Physical Testing Supervisor Relationship Specialty Start Date End Date Danna Santiago DO [address] [facility] [address] [place] [address] PCP - General Family Medicine 05/27/24
--- OUTSIDE RECORDS SUMMARY | 2024-10-06 18:59 | XMS_ITS | Encounter Summary ---
Author Organization [email or web address], [facility] Address [address] [facility] [address] [place] [address] Phone Care Team Providers Care Dynamics Ax Technical Architect Name Role Phone Danna Santiago DO Primary Care Provider [phone] Encounter Details Date Type Department Care Team (Late st Contact Info) Description 05/28/2024 Orders Only [email or web address] [address] [facility] [address] [place] [address] Nephrotic syndrome with morphologic changes, [...] Description 2024 10:40 AM CDT Office Visit [email or web address], [facility] [address] [place] [address] Chata Torres MD [address] [address] [place] [address] documented as of this encounter Visit Diagnoses Diagnosis Nephrotic syndrome with morphologic changes, not otherwise specified Proteinuria, not otherwise specified documented in this encounter Care Teams Dynamics Ax Technical Architect Relationship Specialty Start Date End Date Danna Santiago DO [address] [facility] [address] [place] [address] PCP - General Family Medicine 05/27/24 documented as of this encounter
== END 2024-10-06 16:15 | disposition home or self-care (01) ==
LOC: ER 10-06 01:27 → MEDSURG 10-06 07:48
PROVIDERS: Admitting Provider Internal Medicine; Emergency Provider Emergency Medicine; PCP Family Medicine; Visit Provider Student in an Organized Health Care Education/Training Program
DX: R42 Dizziness and giddiness (principal); E87.6 Hypokalemia; E87.1 Hypo-osmolality and hyponatremia; M32.14 Glomerular disease in systemic lupus erythematosus; K21.9 Gastro-esophageal reflux disease without esophagitis; E11.9 Type 2 diabetes mellitus without complications; Z79.84 Long term (current) use of oral hypoglycemic drugs; Z79.82 Long term (current) use of aspirin; Z79.4 Long term (current) use of insulin; M06.9 Rheumatoid arthritis, unspecified; Z83.3 Family history of diabetes mellitus
CPT/HCPCS: 36415; 36416; 70450; 71045; 71250; 71275; 80048; 80053; 81001; 82607; 82962; 83036; 83540; 83550; 83605; 85025; 85651; 86140; 87040; 87637; 93005; 94760; 96361; 96365; 96367; 96372; 96375; 99285; G0378; J0692; J1650; J1720; J1815; J3372; J3475; J3480; J7030; J7512; J9999

== ENCOUNTER → 2024-10-18 14:52 | Outpatient (BNVA) | payer SELFPAY | PROVIDERS: PCP Family Medicine; Visit Provider Family Medicine | DX: E87.6 Hypokalemia (principal) | CPT/HCPCS: 80048 ==

== ENCOUNTER → 2024-12-07 09:49 | Outpatient (BNVA) | payer MEDICAID, SELFPAY | PROVIDERS: PCP Family Medicine; Visit Provider Family Medicine | DX: N18.1 Chronic kidney disease, stage 1 (principal) | CPT/HCPCS: 80069; 87086 ==

== ENCOUNTER 2025-01-03 13:11 | Oncology outpatient (recurring) (ONCR) | payer MEDICAID, SELFPAY ==
--- NOTE | 2025-01-03 13:30 | CT_ITS ---
WS: [id number] CT chest w con* [id number] HISTORY: pulmonary nodule - 3 month f/u TECHNIQUE: Axial imaging performed through the thorax. Coronal and sagittal reformats are submitted. All CT scans at [facility] use at least one of these dose optimization techniques: automated exposure control; mA and/or kV adjustment per patient size (includes targeted exams where dose is matched to clinical indication); or iterative reconstruction. CONTRAST: Omnipaque 350; 100 mL IV. DLP: 563.86 mGy.cm COMPARISON: 10/05/2024, 10/06/2024 Lungs and central airway: Lungs are well aerated. Reidentified is a noncalcified nodule RIGHT upper lobe. Nodule now measures 7 mm indicating a slight decrease in size since the prior study. There are several additional very small pulmonary nodules which are also unchanged. Majority of these nodules are in the RIGHT lower lobe. None of these nodules are increasing in size. Pleura: Normal. No pleural effusion. Heart and pericardium: Normal size heart with no pericardial effusion. Mediastinum and saleem: No mediastinum or hilar adenopathy. Vessels: Normal size aortic and pulmonary artery. No coronary artery calcifications. Aberrant RIGHT subclavian artery. Chest wall and lower neck: Asymmetry in the lateral LEFT breast. No recent mammogram is available for comparison. Upper abdomen: Hepatic steatosis. Liver appears enlarged but incompletely included on this examination. Stable LEFT adrenal nodule at 10 mm. Osseous structures: Increase in thoracic kyphosis. CT/CT chest w con* [id number] IMPRESSION: 1. RIGHT upper lobe nodule measures 7 mm. Slight decrease in size since 025. There are a few additional very small nodules scattered throughout the aleksandr gs which are also stable. Recommend follow-up chest CT with IV contrast in 6 mo nths. 2. Increased soft tissue nodularity and asymmetry in the lateral LEFT breast. No recent mammogram. Recommend diagnostic mammogram if a mammogram has not been performed recently. 3. Stable LEFT adrenal nodule at 10 mm. 4. Aberrant RIGHT subclavian artery.
[2025-01-03] MEDS: iohexol 350 mg/mL 500 mL Btl (per mL) IV (13:40)
== END 2025-01-23 23:59 | disposition home or self-care (01) ==
LOC: ONCMED 13:13
PROVIDERS: PCP Family Medicine; Visit Provider Internal Medicine Medical Oncology
DX: C20 Malignant neoplasm of rectum (principal); D75.1 Secondary polycythemia; F17.219 Nicotine dependence, cigarettes, with unspecified nicotine-induced disorders; R91.1 Solitary pulmonary nodule
CPT/HCPCS: 71260

== ENCOUNTER → 2025-01-11 11:40 | Outpatient (BNVA) | payer MEDICAID, SELFPAY | PROVIDERS: PCP Family Medicine; Visit Provider Family Medicine | DX: E87.5 Hyperkalemia (principal); E11.21 Type 2 diabetes mellitus with diabetic nephropathy; Z79.4 Long term (current) use of insulin | CPT/HCPCS: 80048; 80053; 83036 ==

== ENCOUNTER 2025-02-07 09:53 | Outpatient (CLI) | payer MEDICAID, SELFPAY ==
[2025-02-07 12:36] LABS: Cholesterol 152 mg/dL (0-200); HDL Cholesterol 36 mg/dL (60-100); Triglycerides 381 mg/dL (0-150)
== END 2025-02-07 09:54 | disposition home or self-care (01) ==
PROVIDERS: PCP Family Medicine; Visit Provider Family Medicine
DX: E78.5 Hyperlipidemia, unspecified (principal)
CPT/HCPCS: 36415; 80061